=== PATIENT | female | born 1960 | race Caucasian/White ===

== ENCOUNTER → 2020-08-30 15:04 | Outpatient (CLI) | payer OTHER, SELFPAY ==
--- NOTE | ~2020-08-30 | CT_ITS ---
EXAMINATION:CT diagnostic chest wo con DATE: 08/30/2020 15:26 INDICATION: Pulmonary nodules. Shortness of breath. TECHNIQUE: Computed tomography (CT) of the chest was performed without intravenous contrast. Automate d exposure control and iterative reconstruction technique were employed. The dose-length product (DLP ) was 632.36 mGy-cm. COMPARISON: None. FINDINGS: There is mild atelectasis in right lung. There is a 6 mm nodule with peripheral calcificati on in right upper lobe. Calcified right hilar and mediastinal lymph nodes are consistent with old gra nulomatous disease. No pleural effusion. The heart size is normal. No pericardial effusion. There are changes of cholecystectomy. There is wall thickening in the distal esophagus. There is mild thoracic spondylosis. IMPRESSION: 1. 6 mm right upper lobe pulmonary nodule, probably benign. Consider noncontrast low-dose chest CT in 6-12 months. 2. Wall thickening of the distal esophagus, most likely esophagitis. Reviewed, dictated and finalized at location B. IMPRESSION: 1. 6 mm right upper lobe pulmonary nodule, probably benign. Consider noncontras t low-dose chest CT in 6-12 months. 2. Wall thickening of the distal esophagus, most likely esophagitis.
== END ==
DX: R06.02 Shortness of breath (principal); R91.8 Other nonspecific abnormal finding of lung field; R91.1 Solitary pulmonary nodule
CPT/HCPCS: 71250

== ENCOUNTER 2025-04-19 13:18 | Emergency (ER) | payer OTHER, SELFPAY ==
[2025-04-19 13:32] VITALS: BP 140/64; PULSE 107; RESP 16; TEMP 37; O2SAT 96
--- NOTE | 2025-04-19 14:08 | ED.URI ---
HPI - URI/Sore Throat General Chief Complaint: Upper Respiratory Infection Stated Complaint: Cold Symptoms Time Seen by Provider: 04/19/25 14:00 Source: patient and RN notes reviewed Mode of arrival: ambulatory Limitations: no limitations History of Present Illness HPI Narrative: 64-year-old female presents Express Care complaining of upper respiratory symptoms for 2 weeks. Patient reports cough, congestion, sinus pressure, mucopurulent nasal drainage has not improved. Patient denies any other upper respiratory symptoms, fevers, chest pain, breathing problems, or any other symptoms. Patient has been doing [id number] cold and flu medication without relief. Patient has a history of diabetes. Related Data Home Medications ?Medication ?Instructions ?Recorded ?Confirmed ?Last Taken ?Type atorvastatin 10 mg tablet mg 04/19/25 Unknown History tirzepatide 7.5 mg/0.5 mL mg subcut 04/19/25 Unknown History subcutaneous pen injector (Mounjaro) Allergies Allergy/AdvReac Type Severity Reaction Status Date / Time No Known Allergies Allergy Verified 04/19/25 13:45 Review of Systems Review of Systems: CONSTITUTIONAL: Denies fever, chills, or sweats. EYES: Denies visual changes, redness, or discharge. ENT: Denies rhinorrhea, sore throat, or otalgia. Positive for congestion and sinus pressure. CARDIOVASCULAR: Denies chest pain, palpitations, or edema. RESPIRATORY: Positive for cough. Negative for wheezing Or dyspnea. GASTROINTESTINAL: Denies abdominal pain, nausea, vomiting, or diarrhea. GENITOURINARY: Denies dysuria or hematuria. SKIN: Denies rash or itching. MUSCULOSKELETAL: Denies back pain, joint pain, or myalgia. NEUROLOGIC: Denies headache, numbness, or weakness. PSYCHIATRIC: Denies anxiety or depression. All other systems reviewed are negative, except as documented in HPI. PMFSH Comments At the time of my signature, I reviewed and agree with the nursing past medical, surgical, social, and family history. There is no relevant family history pertinent to the patient complaint. Exam Narrative: GENERAL: This is a well-nourished, well-developed adult, in no apparent distress. They are non ill-appearing, nontoxic appearing. HEAD: normocephalic, atraumatic. EYES: Sclera clear/white. Conjunctiva normal. Vision is grossly intact. Extraocular movements intact EARS: External ears normal, auditory canals clear and without drainage, TMs normal without perforation. Hearing grossly intact. NOSE: External nose normal with no obvious nasal discharge, nasal turbinates erythematous with exudate, no rhinorrhea. THROAT: Mucous membranes moist, posterior pharynx erythematous with PND Uvula midline. NECK: Neck supple, non-tender without lymphadenopathy, masses or thyromegaly. CARDIOVASCULAR: Regular rate and rhythm without murmurs, gallops, or rubs. RESPIRATORY: Clear to auscultation. Breath sounds equal bilaterally. No wheezes, rales, or rhonchi. SKIN: warm, Dry, intact with no suspicious lesions or rash, good texture and turgor. NEURO: awake, alert, and oriented to person, place and time. There were no obvious focal neurologic abnormalities. EXTREMITIES: No joint tenderness, effusion, or edema noted. BACK: Nontender without deformity. Course Course Level of Care: Express Care Visit Vital Signs Vital signs: Vital Signs Temperature 98.6 F 04/19/25 13:32 Pulse Rate 107 H 04/19/25 13:32 Respiratory Rate 16 04/19/25 13:32 Blood Pressure 140/64 04/19/25 13:32 Pulse Oximetry 96 04/19/25 13:32 Temperature 98.6 F 04/19/25 13:32 Pulse Rate 107 H 04/19/25 13:32 Respiratory Rate 16 04/19/25 13:32 Blood Pressure 140/64 04/19/25 13:32 Pulse Oximetry 96 04/19/25 13:32 MDM MDM Narrative Medical decision making narrative: Patient likely has bacterial sinusitis given length of symptoms. Will treat with Augmentin. Discussed physical exam findings. Advised supportive measures and signs/symptoms to go to the ER. Pt is appropriate for outpt treatment and f/u. Differential Diagnosis Differential Diagnosis: Differential diagnostic considerations for upper respiratory infection include upper respiratory infection, croup, otitis media, sinusitis, viral infection, bronchitis, influenza, pharyngitis, strep, uvulitis. Critical Care Time Critical Care Time Critical Care Time: No Discharge Plan Discharge Clinical Impression: Sinusitis Qualifiers: Sinusitis location: unspecified location Chronicity: acute Recurrence: non-recurrent Qualified Code(s): J01.90 - Acute sinusitis, unspecified Patient Disposition: Home Condition: Stable Instructions: Antibiotic Form, Sinusitis (ED) Additional Instructions: Take the antibiotics as directed and complete the course even if you start to feel better. You may use a Neti pot saline rinse 3 times a day with lukewarm distilled water Continue to take Tylenol or Motrin as needed for pain or fevers. Use a humidifier or vaporizer at night. Drink plenty of water. 8-10 glasses per day. Use flonase 2 times per day for 5 days then as needed Take mucinex 2 times per day and be sure to take with 8oz of water. Follow up with Primary provider in 3-5 days Please go to the ER if he develops any difficulty breathing, chest pain, vomiting, worsening symptoms, or any other concerns Patient Language: Malay Prescriptions: New amoxicillin-pot clavulanate 875-125 mg tablet 1 tablet PO Q12H 7 Days Qty: 14 0RF No Action atorvastatin 10 mg tablet Mounjaro 7.5 mg/0.5 mL pen injector SUBCUT Follow-up/Referrals: PHYSICIAN,MANAGER [employer] [Primary Care Provider, Internal Medicine] Time of Disposition: 14:07
== END 2025-04-19 14:13 | disposition home or self-care (01) ==
DX: J01.90 Acute sinusitis, unspecified (principal)
CPT/HCPCS: 99213; G0463